=== PATIENT | male | born 1970 | race Caucasian/White ===

== ENCOUNTER 2017-01-02 09:52 | Emergency (ER) | payer OTHER ==
[2017-01-02 10:02] VITALS: BP 141/78; PULSE 60; TEMP 97.7; BMI 34.2
--- NOTE | 2017-01-02 10:24 | PDOC ---
History of Present Illness - General History Source: Patient Exam Limitations: No Limitations - History of Present Illness Initial Comments: 01/02/17 12:17 46 year old male, with no significant past medical history, who presents to the emergency room complaining of 3 days of constant, sharp, left sided chest pain that is exacerbated when taking a deep breath and radiates to the shoulders bilaterally. He notes that he picked up a heavy bucket a few days ago, but denies any recent trauma or injury. He has never experienced this before. Took motrin and percocet 2 days ago for pain with minimal improvement. Denies SOB, cough. Denies fever, chills, nausea, vomiting, diaphoresis. Denies sick contact. Denies recent travel, hormone use, immobility, or surgery Allergies: Penicillin Social Hx: No tobacco use. Occasional alcohol use. No illicit drug use. Pt does not have a PCP. <Jackelin Olivares - Last Filed: 01/02/17 12:17> <Cayetano Zapata - Last Filed: 01/02/17 14:13> - General Chief Complaint: Chest Pain Stated Complaint: CHEST PAIN Time Seen by Provider: 01/02/17 10:15 Past History <Jackelin Olivares - Last Filed: 01/02/17 12:17> - Past Medical History Other medical history: NONE - Immunization History Td Vaccination: Yes Immunization Up to Date: Yes - Suicide/Smoking/Psychosocial Hx Smoking Status: No Smoking History: Never smoked Years of Tobacco Use: 0 Number of Cigarettes Smoked Daily: 0 Cigars Per Day: 0 Hx Alcohol Use: Yes (SOCIAL) Drug/Substance Use Hx: No Substance Use Type: None <Cayetano Zapata - Last Filed: 01/02/17 14:13> - Past Medical History Allergies/Adverse Reactions: Allergies Allergy/AdvReac Type Severity Reaction Status Date / Time Penicillins Allergy Intermediate Hives Verified 01/02/17 10:02 Home Medications: Ambulatory Orders NK [No Known Home Medication] 10/19/15 Review of Systems - Review of Systems Able to Perform ROS?: Yes Comments:: 01/02/17 12:17 GENERAL/CONSTITUTIONAL: No fever or chills. No weakness. HEAD, EYES, EARS, NOSE AND THROAT: No change in vision. No ear pain or discharge. No sore throat. GASTROINTESTINAL: No nausea, vomiting, diarrhea or constipation. GENITOURINARY: No dysuria, frequency, or change in urination. CARDIOVASCULAR: +chest pain that radiates to the shoulders. No shortness of breath. RESPIRATORY: No cough, wheezing, or hemoptysis. MUSCULOSKELETAL: No joint or muscle swelling or pain. No neck or back pain. SKIN: No rash NEUROLOGIC: No headache, vertigo, loss of consciousness, or change in strength/ sensation. ENDOCRINE: No increased thirst. No abnormal weight change. HEMATOLOGIC/LYMPHATIC: No anemia, easy bleeding, or history of blood clots. ALLERGIC/IMMUNOLOGIC: No hives or skin allergy. <Jackelin Olivares - Last Filed: 01/02/17 12:17> *Physical Exam - Vital Signs Last Vital Signs Temp Pulse Resp BP Pulse Ox 97.7 F 60 20 141/78 98 01/02/17 09:59 01/02/17 09:59 01/02/17 09:59 01/02/17 09:59 01/02/17 09:59 - Physical Exam Comments: 01/02/17 12:19 GENERAL: Awake, alert, and fully oriented, in no acute distress HEAD: No signs of trauma EYES: PERRLA, EOMI, sclera anicteric, conjunctiva clear ENT: Auricles normal inspection, hearing grossly normal, nares patent, oropharynx clear without exudates. Moist mucosa NECK: Normal ROM, supple, no lymphadenopathy, JVD, or masses LUNGS: Breath sounds equal, clear to auscultation bilaterally. No wheezes, and no crackles HEART: Regular rate and rhythm, normal S1 and S2, no murmurs, rubs or gallops CHEST: +Reproducible chest pain to the left sternal border. ABDOMEN: Soft, nontender, normoactive bowel sounds. No guarding, no rebound. No masses EXTREMITIES: Normal range of motion, no edema. No clubbing or cyanosis. No cords , erythema, or tenderness. 2+ peripheral pulses BACK: No midline spinal tenderness in cervical/thoracic/lumbar region NEUROLOGICAL: Normal speech, cranial nerves intact, negative pronator drift, 5/ 5 strength in all 4 extremities, normal sensation to light touch in all 4 extremities, normal cerebellar exam, normal gait, normal reflexes and tone SKIN: Warm, Dry, normal turgor, no rashes or lesions noted. <Jackelin Olivares - Last Filed: 01/02/17 12:17> - Vital Signs Last Vital Signs Temp Pulse Resp BP Pulse Ox 97.7 F 60 20 141/78 98 01/02/17 09:59 01/02/17 09:59 01/02/17 09:59 01/02/17 09:59 01/02/17 09:59 <Cayetano Zapata - Last Filed: 01/02/17 14:13> Heart Score/ECG Review - History History: Slightly suspicious - Electrocardiogram EKG: Normal - Age Age: 45-65 - Risk Factors Risk Factors Heart Score: Yes Positive family hx of cardiac disease Based on the list above the patient has:: 1-2 risk factors - Troponin Troponin: </= normal limit - Score Heart Score - Total: 2 #1 01/02/17 10:34 Twelve-lead EKG was performed and reviewed by me. Normal axis rhythm, rate 61. Normal axis and normal intervals. No ST elevations. No T-wave inversions. <Cayetano Zapata - Last Filed: 01/02/17 14:13> ED Treatment Course - LABORATORY CBC & Chemistry Diagram: 01/02/17 11:00 01/02/17 11:00 - RADIOLOGY Radiograph Interpretation: 01/02/17 11:40 EXAM#: TYPE/EXAM: RESULT: [id number] RAD/CHEST PA LAT Chest: Chest pain 2 views reveal degenerative changes with wedging, clear lungs, normal mediastinum and sharp angles. Soft tissues are intact and acute process is not seen. Impression: No acute pathology. Reported By: Kota Vila MD 01/02/17 1133 - Medications Given in the ED: ED Medications Discontinued Medications Generic Name Dose Route Start Last Admin Trade Name Freq PRN Reason Stop Dose Admin Acetaminophen 1,000 mg 01/02/17 10:25 01/02/17 10:56 Ofirmev Injection - IVPB 01/02/17 10:26 1,000 mg ONCE ONE Administration <Jackelin Olivares - Last Filed: 01/02/17 12:17> - LABORATORY CBC & Chemistry Diagram: 01/02/17 11:00 01/02/17 11:00 <Cayetano Zapata - Last Filed: 01/02/17 14:13> Medical Decision Making - Medical Decision Making 01/02/17 10:35 46-year-old male with no significant past medical history presents with 3 days of constant chest pain. Vitals are unremarkable. Exam with reproducible pain at the left sternal border. EKG nonischemic. Likely musculoskeletal pain however will check a troponin for ACS although highly unlikely given minimal risk factors and atypical story. Patient does not meet any of the PERC criteria and thus very unlikely to be PE. -labs -cxr -pain control 01/02/17 13:50 Labs, CXR, EKG unremarkable. Likely MSK pain, improved with tylenol and motrin. Will DC to f/u with a PMD - pt does not have one. Will refer to [facility] clinic. I discussed the physical exam findings, ancillary test results and final diagnoses with the patient. I answered all of the patient's questions. The patient was satisfied with the care received and felt comfortable with the discharge plan and treatment plan. The patient will call their primary care physician within 24 hours to arrange follow-up and will return to the Emergency Department with any new, persistent or worsening symptoms. <Cayetano Zapata - Last Filed: 01/02/17 14:13> *DC/Admit/Observation/Transfer - Attestations Scribe Attestion: 01/02/17 12:19 Documentation prepared by IRINEO Roberts, acting as medical policy specialist for Cayetano Zapata MD. <Jackelin Olivares - Last Filed: 01/02/17 12:17> - Discharge Dispostion Admit: No - Attestations Physician Attestion: 01/02/17 14:13 I, Dr. Cayetano Zapata MD, attest that this document has been prepared under my direction and personally reviewed by me in its entirety. I further attest, that it accurately reflects all work, treatment, procedures and medical decision -making performed by me. <Cayetano Zapata - Last Filed: 01/02/17 14:13> Diagnosis at time of Disposition: Chest pain - Discharge Dispostion Disposition: HOME Condition at time of disposition: Stable
[2017-01-02] MEDS ORDERED: ACETAMINOPHEN 1000 MG/100 ML VIAL (NON FORMULARY) IVPB ONE (10:25)
[2017-01-02] MEDS ORDERED: ACETAMINOPHEN INJECTION 100 ML IVPB ONE (10:54)
[2017-01-02 11:36] LABS: BASOPHIL 1.4 % (0-2.0); EOSINOPHIL 5.8 % (0-4.5); MCHC 34.9 g/dl (32.0-35.9); MEAN CELL VOLUME 85.9 fl (80-96); MEAN PLT VOLUME 7.2 fl (7.5-11.1); NEUTROPHILS 56.7 % (42.8-82.8); PLATELET COUNT 240 K/MM3 (134-434); RDW 13.6 % (11.9-15.9)
[2017-01-02 12:10] LABS: ANION GAP 9 (8-16); CALCIUM 8.9 mg/dL (8.5-10.1); CO2 27 mmol/L (21-32); GLUCOSE,RANDOM 84 mg/dL (74-106); MAGNESIUM 2.1 mg/dL (1.8-2.4)
[2017-01-02 12:11] LABS: TROPONIN I < 0.02 ng/ml (0.00-0.05)
[2017-01-02 12:14] LABS: ALK PHOS 115 U/L (45-117); BILIRUBIN,TOTAL 1.2 mg/dL (0.2-1.0); CREATININE 1.2 mg/dL (0.7-1.3); SGOT/AST 32 U/L (15-37); SGPT/ALT 59 U/L (12-78); TOT PROT 7.4 g/dl (6.4-8.2)
[2017-01-02] MEDS ORDERED: KETOROLAC TROMETHAMINE 15 MG/ML VIAL IVPUSH ONE (13:50)
[2017-01-02] MEDS ORDERED: KETOROLAC TROMETHAMINE 30 MG/1 ML VIAL ONE (14:16)
--- NOTE | 2017-01-04 09:49 | EKG ---
Test Reason : Blood Pressure : / mmHG Vent. Rate : 061 BPM Atrial Rate : 061 BPM P-R Int : 140 ms QRS Dur : 092 ms QT Int : 392 ms P-R-T Axes : 032 063 033 degrees QTc Int : 394 ms NORMAL SINUS RHYTHM NORMAL ECG NO PREVIOUS ECGS AVAILABLE Confirmed by BEBO BROWN MD ([id number]) on 01/04/2017 9:49:24 AM Referred By: Confirmed By:BEBO BROWN MD
== END 2017-01-02 14:25 | disposition home or self-care (01) ==
LOC: JER 09:52
PROC: 3E033NZ Introduction of Analgesics, Hypnotics, Sedatives into Peripheral Vein, Percutaneous Approach (ICD-10-PCS; principal; 2017-01-02)
PROC: 3E0333Z Introduction of Anti-inflammatory into Peripheral Vein, Percutaneous Approach (ICD-10-PCS; 2017-01-02)
DX: R07.89 Other chest pain (principal)
CPT/HCPCS: 36415; 71020-TC; 80053; 83690; 83735; 84484; 85025; 93005; 93010; 99282-25

== ENCOUNTER 2022-01-08 07:47 | Emergency (ER) | payer OTHER ==
[2022-01-08 08:10] VITALS: TEMP 97.9; BMI 34.7
[2022-01-08 09:13] VITALS: BP 150/72; PULSE 80; RESP 18
== END 2022-01-08 10:33 | disposition home or self-care (01) ==
LOC: JER 07:47
DX: S10.15XA Superficial foreign body of throat, initial encounter (principal)
CPT/HCPCS: 71046-TC-FY; 99284-25

== ENCOUNTER 2024-01-23 12:43 | Observation (INO) | payer OTHER ==
[2024-01-23 13:12] VITALS: BMI 32.3
[2024-01-23 14:32] LABS: BASO % 1.3 % (0-2.0); EOS % 3.6 % (0-4.5); LYMPH % 29.7 % (8-40); MCHC 34.9 g/dl (32.0-35.9); MEAN PLT VOLUME 6.7 fl (7.5-11.1); MONO % 6.1 % (3.8-10.2); NEUT % 59.3 % (42.8-82.8); PLATELET COUNT 266 10^3/uL (134-434); RDW 13.5 % (11.9-15.9); WHITE BLOOD COUNT 6.8 K/mm3 (4.0-10.0)
[2024-01-23] MEDS ORDERED: ACETAMINOPHEN INJECTION 100 ML ONE (14:32)
[2024-01-23] MEDS: ACETAMINOPHEN 1000 MG/100 ML BAG IVPB ONE (14:36)
[2024-01-23 14:40] LABS: INR 0.95 (0.83-1.09); PROTHROMBIN TIME (PATIENT) 10.7 SEC (9.7-13.0)
[2024-01-23 14:43] LABS: ACTIVATED PTT 28.8 SECONDS (25.2-36.5)
[2024-01-23 14:44] LABS: POTASSIUM 4.4 mmol/L (3.5-5.1)
[2024-01-23 14:46] LABS: CALCIUM 9.2 mg/dL (8.5-10.1)
[2024-01-23 14:47] LABS: BLOOD UREA NITROGEN 20.1 mg/dL (7-18); MAGNESIUM 2.1 mg/dL (1.8-2.4)
[2024-01-23 14:50] LABS: CREATININE 1.2 mg/dL (0.55-1.3)
[2024-01-23 14:52] LABS: TOT PROT 7.3 g/dl (6.4-8.2)
[2024-01-23 15:42] LABS: HIV INTERPRETATION NEGATIVE (NEGATIVE)
[2024-01-23] MEDS ORDERED: diazePAM 5 MG TABLET ONE (15:49)
[2024-01-23] MEDS ORDERED: DEXAMETHASONE SOD PHOSPHATE 10 MG/1 ML VIAL ONE (15:49)
[2024-01-23] MEDS: diazePAM 5 MG TABLET PO ONE (15:54)
[2024-01-23] MEDS: DEXAMETHASONE SOD PHOSPHATE 10 MG/1 ML VIAL IVPUSH ONE (15:54)
[2024-01-23] MEDS ORDERED: KETOROLAC TROMETHAMINE 15 MG/ML VIAL ONE (18:02)
[2024-01-23] MEDS ORDERED: morphine SULFATE 4 MG/ML VIAL ONE (18:02)
[2024-01-23] MEDS: KETOROLAC TROMETHAMINE 15 MG/ML VIAL IVPUSH ONE (18:10)
[2024-01-23] MEDS: morphine CARPU-JECT 4 MG/1 ML DISP.SYRIN IVPUSH ONE (18:10)
[2024-01-23] MEDS: ACETAMINOPHEN 500 MG TABLET (FP) PO SCH (23:30)
[2024-01-23] MEDS: diazePAM 5 MG TABLET PO SCH (23:30)
[2024-01-24 06:14] VITALS: RESP 18
[2024-01-24 08:36] VITALS: TEMP 97.7
[2024-01-24] MEDS: DEXAMETHASONE 8 MG, DEXAMETHASONE 2 MG PO SCH (09:09)
[2024-01-24 09:22] LABS: HEMATOCRIT 45.5 % (35.4-49); HEMOGLOBIN 15.8 GM/dL (11.7-16.9); MCH 30.2 pg (25.7-33.7); MCHC 34.7 g/dl (32.0-35.9); MEAN CELL VOLUME 86.9 fl (80-96); MEAN PLT VOLUME 7.2 fl (7.5-11.1); PLATELET COUNT 318 10^3/uL (134-434); RBC 5.24 M/mm3 (4.00-5.60); RDW 13.5 % (11.9-15.9); WHITE BLOOD COUNT 17.1 K/mm3 (4.0-10.0)
[2024-01-24 09:42] LABS: POTASSIUM 4.2 mmol/L (3.5-5.1)
[2024-01-24 09:44] LABS: ALBUMIN 3.8 g/dl (3.4-5.0); BLOOD UREA NITROGEN 21.7 mg/dL (7-18); CALCIUM 9.3 mg/dL (8.5-10.1)
[2024-01-24 09:47] LABS: CREATININE 1.2 mg/dL (0.55-1.3)
[2024-01-24 09:49] LABS: BILIRUBIN,TOTAL 1.2 mg/dL (0.2-1); TOT PROT 7.7 g/dl (6.4-8.2)
[2024-01-24 09:59] LABS: ERYTHROCYTE SEDIMENTATION RATE 7 mm/hr (0-20)
[2024-01-24] MEDS ORDERED: DEXAMETHASONE 0.5 MG TABLET PO SCH (10:00)
[2024-01-24 13:49] VITALS: BP 136/85; PULSE 97
== END 2024-01-24 14:00 | disposition home or self-care (01) ==
LOC: JER 12:43 → JERBED 17:36 → J6S 21:22
PROVIDERS: ADMIT Internal Medicine; ATTEND Internal Medicine
PROC: 3E033NZ Introduction of Analgesics, Hypnotics, Sedatives into Peripheral Vein, Percutaneous Approach (ICD-10-PCS; principal; 2024-01-23)
PROC: 3E033GC Introduction of Other Therapeutic Substance into Peripheral Vein, Percutaneous Approach (ICD-10-PCS; 2024-01-23)
PROC: 3E0333Z Introduction of Anti-inflammatory into Peripheral Vein, Percutaneous Approach (ICD-10-PCS; 2024-01-23)
DX: R07.89 Other chest pain (principal); M75.41 Impingement syndrome of right shoulder; M48.02 Spinal stenosis, cervical region; Z87.828 Personal history of other (healed) physical injury and trauma; Z88.0 Allergy status to penicillin
CPT/HCPCS: 36415; 71046-TC-FY; 72040-TC; 72125-TC; 72141-TC; 80053; 83690; 83735; 84484; 85025; 85027; 85610; 85651; 85730; 86140; 86803; 87389; 93005; 93010; 96374; 96375; 97116-GP; 99285-25; G0378; J0131; J1100